=== PATIENT | male | born 1950 | race Caucasian/White ===

== ENCOUNTER → 2017-12-18 | Outpatient (REF) | payer MEDICARE, BC ==
[~2017-12-18] MED LIST: ACE3 PO; ACY200 PO; ASPI-715 PO; ATR10 PO; BEN20 PO; NAPR220C12 PO
== END ==
LOC: ZZSENDIN 10:44
PROVIDERS: ATTEND Family Medicine
DX: Z01.818 Encounter for other preprocedural examination (principal)
CPT/HCPCS: 81001

== ENCOUNTER 2017-12-22 01:15 | Inpatient (IN) | payer MEDICARE, BC ==
--- NOTE | 2017-12-02 11:27 | RADIOLOGY IMAGING REPORT ---
[place] [facility] [place] NAME[place] Obdulio Otoole : 1950 MR: [id number] V: [id number] EXAM DATE: ORDERING PHYSICIAN: WILBERT CRAWFORD TECHNOLOGIST: Location: [facility] - [place] Patient: Obdulio Otoole : 1950 Visit/Account:[id number] Date of Sevice: 12/02/2017 Exam type: CHEST PA AND LAT History: Preop, cough Comparison: 02/26/2010. Findings: Lungs are hyperinflated. There is no focal consolidation, pleural effusion or pneumothorax. Heart size is normal. The osseous structures demonstrate degenerative changes. Surgical screws overlie the right glenoid. IMPRESSION: 1. Pulmonary hyperinflation but no acute cardiopulmonary disease. Report Dictated By: Blake Laureano MD at 12/02/2017 11:21 AM Report E-Signed By: Blake Laureano MD at 12/02/2017 11:23 AM [id number]
[2017-12-22] VITALS (15 sets, daily range): BP systolic 123–148; BP diastolic 75–97
[~2017-12-22] VITALS: Ht 182.9 cm; Wt 112.5 kg
[2017-12-22] MEDS ORDERED: cloNIDine EPIDUR INJ 100MCG/ML 40 MCG, ROPIVACAINE 0.5% 20 ML VIAL 25 ML, EPINEPHrine H... INJ ONE (06:15)
--- NOTE | 2017-12-22 07:28 | LEVENE H&P ---
DATE OF ADMISSION: December 22, 2017 IDENTIFICATION/CHIEF COMPLAINT The patient is a 67-year-old gentleman with a chief complaint of right hip pain. HISTORY OF PRESENT ILLNESS The patient has a longstanding history of hip arthritis, which has become progressively painful and debilitating, refractory to conservative care. Surgery is indicated to relieve symptoms after failure of nonoperative measures. PAST MEDICAL HISTORY Notable for hypertension controlled on medication, sleep apnea. ALLERGIES He has no known drug allergies. CURRENT MEDICATIONS 1. Acyclovir 200 mg p.o. q.day. 2. Benazepril 40 mg p.o. q.day. 3. Atorvastatin 10 mg p.o. q.day. 4. Aspirin 81 mg p.o. q.day. 5. Naproxen as needed. PAST SURGICAL HISTORY Notable for shoulder reconstruction, UCL repair, and a hernia repair. FAMILY HISTORY Notable for a father with COPD and a mother with stroke. SOCIAL HISTORY Notable for smoking and occasionally chewing tobacco from 1957 ti 1995. He quit at that time. He drinks alcohol, 3-4 beverages per week, denies abuse. REVIEW OF SYSTEMS Negative. PHYSICAL EXAMINATION GENERAL: This is a well-developed, well-nourished male who appears stated age. HEENT: Normocephalic, atraumatic. NECK: Supple. LUNGS: Clear. HEART: Regular. ABDOMEN: Soft. ORTHOPEDIC EXAMINATION: The right hip is stiff at the limits of motion. Combined flexion and rotation produces pain. Hip girdle strength is normal. Skin envelope is intact. Neurovascular function is intact. RADIOGRAPHIC DATA Radiographs demonstrate end-stage hip arthritis. ASSESSMENT Right hip end-stage degenerative joint disease, progressively painful and debilitating, refractory to conservative care. PLAN Per patient request, we are going to proceed with total hip arthroplasty. Nature of this procedure, risks, benefits, the anticipated rehab course were reviewed. Risks include but are not limited to , major medical or anesthetic complication, infection, neurovascular injury, blood transfusion, stiffness, scarring, fracture, tendon rupture, instability, leg length discrepancy, implant loosening, migration or failure, persistent or recurrent pain, need for future surgery, and other unforeseen. He understands and wishes to proceed. Signed consent was placed in the chart, no guarantees given or implied. NADEEN
[2017-12-22] MEDS ORDERED: PROPOFOL EMUL(*) 10MG/ML 20 ML 20 ML ONE (08:04)
[2017-12-22] MEDS ORDERED: ONDANSETRON 4 MG/2 ML VIAL ONE (08:04)
[2017-12-22] MEDS ORDERED: DEXAMETHASONE SOD 4 MG/ML VIAL ONE (08:04)
[2017-12-22] MEDS ORDERED: LIDOCAINE MPF 1% 5 ML VIAL ONE (08:04)
[2017-12-22] MEDS ORDERED: fentaNYL CITR 100 MCG/2 ML AMP ONE (08:05)
[2017-12-22] MEDS ORDERED: ceFAZolin(*) 2GM/D5W 50ML 50 ML IVPB ONE (09:15)
[2017-12-22] MEDS ORDERED: FAMOTIDINE 20 MG TAB PO ONE (09:15)
[2017-12-22] MEDS ORDERED: LIDOCAINE/SOD BICARB 8.4% SYR ID ONE (09:15)
[2017-12-22] MEDS ORDERED: NORMOSOL R SOLN(*) 1000 ML BAG 1,000 ML IV PRN ×2 (09:15→12:40)
[2017-12-22] MEDS ORDERED: MIDAZOLAM 2 MG/2 ML VIAL IVP PRN (09:15)
[2017-12-22] MEDS ORDERED: TRANEXAMIC AC 1000 MG/10ML SDV 1,000 MG in DEXTROSE 5% 50 ML BAG 50 ML IV ONE (09:15)
[2017-12-22] MEDS ORDERED: KETAMINE HCL 200 MG/20 ML MDV ONE (10:30)
[2017-12-22] MEDS ORDERED: ACETAMINOPHEN 325 MG TAB PO PRN (12:40)
[2017-12-22] MEDS ORDERED: BENZOCAINE/MENTHOL 1 EACH LOZG PO PRN (12:40)
[2017-12-22] MEDS ORDERED: DIAZEPAM 5 MG TAB PO PRN (12:40)
[2017-12-22] MEDS ORDERED: diphenhydrAMINE 50 MG/ML VIAL IVP PRN (12:40)
[2017-12-22] MEDS ORDERED: MAGNESIUM HYDROXIDE* 30ML UDCP PO PRN (12:40)
[2017-12-22] MEDS ORDERED: BISACODYL 10 MG SUPP PR PRN (12:40)
[2017-12-22] MEDS ORDERED: ZOLPIDEM TARTRATE 5 MG TAB PO PRN (12:40)
[2017-12-22] MEDS ORDERED: diphenhydrAMINE 25 MG CAP PO PRN (12:40)
[2017-12-22] MEDS ORDERED: PROMETHAZINE 25 MG/ML 1 ML AMP IVP PRN (12:40)
[2017-12-22] MEDS ORDERED: FLUSH 10 ML SYR IVP PRN (12:40)
--- NOTE | 2017-12-22 14:10 | RADIOLOGY IMAGING REPORT ---
FACILITY: [facility] [place] PATIENT NAME: Obdulio Otoole : 1950 MR: [id number] V: [id number] EXAM DATE: ORDERING PHYSICIAN: WILBERT CRAWFORD TECHNOLOGIST: [place] [facility] [place] Patient: Obdulio Otoole : 1950 Visit/Account:[id number] Date of Sevice: 12/22/2017 PELVIS History: Postoperative right hip arthroplasty COMPARISON: none. FINDINGS: 1 views are provided. Right hip arthroplasty hardware appears well seated and in good alig nment. Expected postoperative changes overlie the soft tissues. Left hip joint appears within carly l limits. IMPRESSION: Right hip arthroplasty hardware in good alignment. No evidence of complications. Report Dictated By: Anderson Naranjo MD at 12/22/2017 2:05 PM Report E-Signed By: Anderson Naranjo MD at 12/22/2017 2:06 PM WSN:[id number]
--- NOTE | 2017-12-22 16:04 | Hospitalist Consultation ---
History of Present Illness Requesting Physician Bronson Ramey MD Reason for Consult s/p R-PAULINA and medical management Chief Complaint s/p R-PAULINA and hip pain History of Present Illness Mr. Otoole is a 67-year-old gentleman with a longstanding history of hip arthritis, which has become progressively painful and debilitating, refractory to conservative care. Surgery is indicated to relieve symptoms after failure of nonoperative measures. He underwent R-PAUILNA by today. Patient tolerated the anesthesia and surgical procedure. 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 I was asked to evaluate this patient for his medical problems during his hospital stay. He is afebrile, hemodynamically and medically stable. He denies any complaint. History Home Meds Reported Medications Naproxen Sodium (ALEVE) 220 Mg Capsule, 220 MG PO PRN, CAPSULE 12/16/17 Aspirin (Aspirin) 81 Mg Tablet.dr, 81 MG PO QDAY, 0 Refills 02/25/10 Benazepril Hcl 20 MG TAB (Benazepril Hcl 20 MG TAB) 20 Mg Tablet, 40 MG PO QDAY , 0 Refills 02/25/10 Acyclovir (Zovirax) 200 Mg Cap, 200 MG PO QDAY, 0 Refills 02/25/10 Atorvastatin (Lipitor) 10 Mg Tab, 10 MG PO QHS, 0 Refills 02/25/10 Allergies: Coded Allergies: No Known Drug Allergies (Verified , 12/16/17) Patient History: FH: COPD (chronic obstructive pulmonary disease) FATHER, FH: stroke MOTHER, Smoking Status: Never Smoker Caffeine Intake: Coffee Caffeine/Cups Per Day: 6 TO 7 CUPS PER DAY Hx Alcohol Use: Yes Alcohol Used: Beer Hx Substance Use Disorder: No Social Drug Use: Never History of IV Drug Use: No Review of Systems Constitutional: No Fever, No Chills Neurological: No Confusion, No Weakness, No Dizziness Eyes: No Vision Change ENT: No Sinus Congestion, No Sore Throat Cardiovascular: No Chest Pain, No Palpitations Respiratory: No Shortness of Breath, No Cough, No Wheezing Gastrointestinal: No Nausea, No Vomiting, No Diarrhea, No Constipation, No Abdominal Pain Genitourinary: No Dysuria, No Hematuria Musculoskeletal: Pain, Impaired Mobility, Other, No Sprain, No Strain Psychiatric: No Depression, No Anxiety Exam Vital Signs Vital Signs Date Time Temp Pulse Resp B/P (MAP) Pulse Ox O2 Delivery O2 Flow Rate FiO2 12/22/17 15:30 86 134/89 (104) 92 12/22/17 15:00 Nasal Cannula 1.0 12/22/17 14:23 97.0 12 General Appearance: Alert, Awake, No Acute Distress, Afebrile Neuro: No Gross deficits Eyes: PERRLA ENT: Normal Cardiovascular: Normal Rhythm & Peripheral Pulses Respiratory: No Respiratory Distress GI: Abd Soft and Non-Tender : Normal Extremities: Soft and Non Tender, Other (R-hip tenderness and decrease ROM) Integumentary: Skin Intact without Lesion / Mass Psych: Alert & Oriented X3, Appropriate Mood & Affect Medical Decision Making Pre-Admit Course Medical Record Review: Yes Assessment and Plan Problems: (1) HTN (hypertension) Status: Chronic Assessment & Plan: I will start low salt diet I will replace Benazepril to Lisinopril 40mg po qd I will hold his ASA 81mg qd I will continue his Acyclovir for Shingle's prophylaxis (2) S/P total hip arthroplasty Status: Acute Assessment & Plan: Management as per surgery and PT I will start Aspirin 325mg po qd for DVTP Pain management as per surgery (3) Dyslipidemia Status: Chronic Assessment & Plan: I will continue his Lipitor 10mg po qd Low fat diet Central Venous Access Medical Necessity for Access: IV Access Time Spent on Plan of Care: < 30 min Copies to: JULI STRONG MD; BRONSON RAMEY MD Venous Thromboembolism VTE Risk Physician Assess for VTE Risk: Yes Patient's VTE Risk: Low VTE Diagnostic Test 2 Days Prior to Admit: No Antithrombotics Is Pt On Any Antithrombotics?: No Exam Sepsis Risk: No Definite Risk Problem Qualifiers (1) S/P total hip arthroplasty: Laterality: right Qualified Codes: Z96.641 - Presence of right artificial hip joint JANELL GRIGGS MD Dec 22, 2017 16:04
[2017-12-22] MEDS ORDERED: LISINOPRIL 20 MG TAB PO SCH (16:10)
[2017-12-22] MEDS: CELECOXIB 200 MG CAP PO SCH (16:18)
[2017-12-22] MEDS: APAP/HYDROCODONE 325/7.5 TAB PO PRN ×2 (17:30→22:25)
[2017-12-22] MEDS: ceFAZolin 1 GM VIAL IVPB SCH (18:02)
[2017-12-22] MEDS: ATORVASTATIN 10 MG TAB PO SCH (20:52)
--- NOTE | 2017-12-22 22:28 | OPERATIVE REPORT 1 ---
EVENT DATE: December 22, 2017 SURGEON: Bronson Ramey MD ANESTHESIOLOGIST: Scott Spaulding MD ANESTHESIA: General plus spinal. STATISTICAL DEVELOPER: Axel Truong PA-C PREOPERATIVE DIAGNOSIS Right hip degenerative joint disease. POSTOPERATIVE DIAGNOSIS Right hip degenerative joint disease. PROCEDURE PERFORMED Right total hip arthroplasty. ESTIMATED BLOOD LOSS 200 mL DRAINS None. SPECIMENS None. COMPLICATIONS None apparent. IMPLANTS USED Baydin system with a Trident PSL GOMES cluster acetabular shell 52, Trident X3 zero-degree poly liner to accommodate a 36 mm head, a Secur-Fit Max 132-degree stem size 11, a Biolox delta ceramic C-taper femoral head +2.5 mm, 36 diameter. INDICATIONS Obdulio is a 67-year-old gentleman with progressive pain and disability related to end-stage hip arthritis. Surgery is indicated to relieve symptoms after failure of nonoperative measures. DESCRIPTION OF PROCEDURE The patient was taken to the operating room and placed supine on the operating table. A spinal block was administered by the anesthesiologist. General anesthesia was induced. Antibiotics were administered IV. The patient was positioned in left lateral decubitus on a well-padded pegboard. All bony prominences and superficial nerves were well padded. The right hip girdle and lower extremity were prepped and draped free in the usual sterile fashion for hip arthroplasty. A standard posterolateral incision was made and carried down through the skin and subcutaneous tissue to the deep fascia. The fascia was incised over the tip of the trochanter and extended distally in line with the femur and proximally in line with the latoya fibers. The latoya fibers were split bluntly. The trochanteric bursa was excised. A Charnley retractor was introduced. An L capsulotomy/tenotomy was made with the horizontal limb made just above the piriformis extending through the capsular layer and peeling the capsule and the external rotators off the posterior aspect of the femur. Tag stitches of #2 Vicryl were placed in the capsule and piriformis for later reattachment. The femoral head was dislocated. End-stage arthritis was noted. A 1.5 cm neck cut was made consistent with preoperative templating. The femoral head was extracted. The femur was translocated anteriorly. Acetabular retractor was placed with the tips down on bone. The labrum and pulvinar were excised. The 44 mm reamer was used to medialize the true medial wall of the acetabulum. It was expanded in 1 and 2 mm increments up to 52 where nice rim contact was obtained. Trial 52 had nice [id number] fit. The 53 was used to open the floor to the acetabulum to accommodate the raised rim liner. Then, the actual shell was impacted in approximately 40 degrees of lateral opening and 15 degrees of anteversion using the extracorporeal guide. The transverse acetabular ligament and the internal bony landmarks guided socket placement. Additional inferior osteophytes were resected. The liner was impacted into the cleaned and dried shell. Attention was turned to femoral preparation. The superior neck was resected with the cookwebme cutter. [facility] the [facility]. Tapered reaming was performed up to size 11 with good end ostial contact was obtained. Broaching started at 9 and worked up to 11, taking care to lateralize and to the follow the tribal version in the calcar at about 12 to 15 degrees. The 11 stem had nice fit and fill, and trial reduction was performed off this. Good holiness of limb length and stability were achievable. The broach was extracted. The surfaces were copiously lavaged. The pain cocktail was infiltrated throughout the wound. The actual stem was impacted, and after this was fully seated, various head and neck lengths were tried. The +2.5 seemed to be optimal for holiness of the limb length and stability. The Lucia taper was lavaged and dried, and the actual Biolox head was impacted onto the Lucia taper. The joint was reduced. The capsule and external rotators were reapproximated anatomically through drill holes on the posterior femur. The deep fascia was closed distally with #2 Ethibond and proximally with #2 Vicryl. The subcutaneous tissue was lavaged. Hemostasis was assured. The derm was closed with 3-0 Vicryl and the skin with surgical eli. Xeroform was applied with 4 x 4 dry, sterile dressing. The patient was rolled supine. A hip wrap was placed along with an abduction pillow. He was awakened from anesthesia and taken to the recovery room in stable condition having tolerated the procedure well. The plan is for standard PAULINA rehab protocol and weightbearing as tolerated. [facility]US[facility]
[2017-12-23] MEDS: ceFAZolin 1 GM VIAL IVPB SCH ×2 (02:41→10:25)
[2017-12-23] MEDS: APAP/HYDROCODONE 325/7.5 TAB PO PRN ×3 (02:44→20:06)
[2017-12-23 02:52] VITALS: BP 115/71
[2017-12-23 07:26] VITALS: BP 113/82
[2017-12-23] MEDS ORDERED: ASPI-764 PO (07:57)
[2017-12-23] MEDS ORDERED: HYDR-389 PO (07:58)
[2017-12-23] MEDS: CELECOXIB 200 MG CAP PO SCH ×2 (08:28→16:26)
[2017-12-23] MEDS: ASPIRIN 325 MG ENTERIC COATED PO SCH (08:28)
[2017-12-23] MEDS: ACYCLOVIR 200 MG CAP PO SCH (08:28)
[2017-12-23] MEDS ORDERED: LISINOPRIL 20 MG TAB PO SCH (09:00)
[2017-12-23] MEDS ORDERED: ASPIRIN 325 MG TAB PO SCH (09:00)
[2017-12-23 09:12] VITALS: Ht 182.9 cm; Wt 112.5 kg
[2017-12-23 11:20] VITALS: BP 110/70
--- NOTE | 2017-12-23 13:56 | Hospitalist Progress Note ---
Subjective Progress Notes Subjective He reports doing well. Physical Exam Vital Signs Date Time Temp Pulse Resp B/P (MAP) Pulse Ox O2 Delivery O2 Flow Rate FiO2 12/23/17 11:21 83 12/23/17 11:20 98.4 85 16 110/70 (83) Room Air 12/23/17 07:33 1.0 Intake and Output 12/24/17 07:01 Intake Total 240 ml Balance 240 ml Intake Oral 240 ml # Voids 2 General Appearance: Alert, Awake Cardiovascular: Regular Rate and Rhythm Respiratory: Clear to Auscultation Assessment and Plan Problems: (1) HTN (hypertension) Status: Chronic Assessment & Plan: Monitor BPs and resume Benazepril 40mg po qday as needed. (2) S/P total hip arthroplasty Status: Acute Assessment & Plan: As per orthopedics. Aspirin 325mg po qd for DVT prophylaxis. (3) Dyslipidemia Status: Chronic Assessment & Plan: Continue Lipitor 10mg po qd. Low fat diet. Central Venous Access Medical Necessity for Access: IV Access Exam Sepsis Risk: No Definite Risk Problem Qualifiers (1) S/P total hip arthroplasty: Laterality: right Qualified Codes: Z96.641 - Presence of right artificial hip joint FANNY SKINNER MD Dec 23, 2017 13:56
[2017-12-23 15:03] VITALS: BP 108/67
[2017-12-23 19:14] VITALS: BP 113/72
[2017-12-23] MEDS: ATORVASTATIN 10 MG TAB PO SCH (20:10)
[2017-12-23 23:26] VITALS: BP 119/76
[2017-12-24 03:30] VITALS: BP 114/77
[2017-12-24] MEDS: APAP/HYDROCODONE 325/7.5 TAB PO PRN (04:18)
[2017-12-24 08:05] VITALS: BP 103/78
[2017-12-24] MEDS: ACYCLOVIR 200 MG CAP PO SCH (08:15)
[2017-12-24] MEDS: CELECOXIB 200 MG CAP PO SCH (08:15)
[2017-12-24] MEDS: ASPIRIN 325 MG ENTERIC COATED PO SCH (08:15)
[2017-12-24] MEDS ORDERED: BENAZEPRIL HCL 20 MG TAB PO SCH (09:00)
--- NOTE | 2017-12-24 10:13 | EKG ---
[place] [facility] [place]IENT NAME: SHIRLEY WRIGHT : [id number] MR: [id number] V: [id number] EXAM DATE: ORDERING PHYSICIAN: JANELL GRIGGS TECHNOLOGIST: DIONY Irving Reason : RAPID RESPONSE Blood Pressure : / mmHG Vent. Rate : 078 BPM Atrial Rate : 078 BPM P-R Int : 214 ms QRS Dur : 086 ms QT Int : 354 ms P-R-T Axes : 065 042 047 degrees QTc Int : 403 ms Sinus rhythm with 1st degree AV block Otherwise normal ECG No previous ECGs available Referred By: INDU Confirmed By:
[2017-12-24] MEDS ORDERED: NS(*) 0.9% 500 ML BAG 500 ML ONE (10:39)
[2017-12-24 11:07] VITALS: BP 112/71
--- NOTE | 2017-12-24 17:07 | Hospitalist Progress Note ---
Subjective Progress Notes Subjective Mr. Otoole is a 67-year-old gentleman with a longstanding history of hip arthritis, which has become progressively painful and debilitating, refractory to conservative care. Surgery is indicated to relieve symptoms after failure of nonoperative measures. He underwent R-PAULINA by today. Patient tolerated the anesthesia and surgical procedure. 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 I was asked to evaluate this patient for his medical problems during his hospital stay. He is afebrile, hemodynamically and medically stable. He denies any complaint. 12/24: Patient had an episode of orthostatic hypotension during his PT session. His BP meds were on hold. His orthostasis was positive and he received 500ml NS and did well. His orthostasis improved and he completed his PT session and did well. He was d/c'd by Dr. Crawford. Patient Complains of: Neurological: Confusion, Dizziness, No: Syncope, Weakness, Slurred Speech Cardiovascular: Orthostatic Hypotension, No: Chest Pain, Palpitations Respiratory: No: Cough, Shortness of Breath Gastrointestinal: Nausea, No Vomiting Genitourinary: No Dysuria, No Hematuria Musculoskeletal: Pain Physical Exam Vital Signs Date Time Temp Pulse Resp B/P (MAP) Pulse Ox O2 Delivery O2 Flow Rate FiO2 12/24/17 11:07 97.9 81 16 112/71 (85) 97 Nasal Cannula 1.0 Intake and Output 12/25/17 07:00 Intake Total 920 ml Balance 920 ml Intake Oral 420 ml IV Total 500 ml # Voids 1 General Appearance: Alert, Awake, No Acute Distress, Afebrile Neuro: No Gross deficits Eyes: PERRLA ENT: Normal Neck: No Masses Cardiovascular: Regular Rate and Rhythm Respiratory: No Respiratory Distress GI: Soft and Non-Tender Extremities: Soft and Non Tender (mild hip tenderness) Integumentary: Skin Intact without Lesion / Mass Psych: Alert & Oriented X3, Appropriate Mood & Affect Assessment and Plan Problems: (1) HTN (hypertension) Status: Chronic Assessment & Plan: Monitor BPs and resume Benazepril 40mg po qday as needed. 12/24: His BP meds were on hold and patient will resume gradually at home. (2) S/P total hip arthroplasty Status: Acute Assessment & Plan: As per orthopedics. Aspirin 325mg po qd for DVT prophylaxis. 12/24: Management as persurgery and f/u with Dr. Crawford (3) Dyslipidemia Status: Chronic Assessment & Plan: Continue Lipitor 10mg po qd. Low fat diet. 12/24: He will resume his home meds for dyslipidemia Central Venous Access Medical Necessity for Access: IV Access Time Spent on Plan of Care: < 30 min Copies to: WILBERT CRAWFORD MD Exam Sepsis Risk: No Definite Risk Problem Qualifiers (1) S/P total hip arthroplasty: Laterality: right Qualified Codes: Z96.641 - Presence of right artificial hip joint JANELL GRIGGS MD Dec 24, 2017 17:07
== END 2017-12-24 15:45 | disposition home or self-care (01) | DRG 470 ==
LOC: OR 01:15 → MED 14:20
PROVIDERS: ADMIT Orthopaedic Surgery; ATTEND Orthopaedic Surgery
PROC: 0SR904A Replacement of Right Hip Joint with Ceramic on Polyethylene Synthetic Substitute, Uncemented, Open Approach (ICD-10-PCS; principal; 2017-12-22 10:26)
DX: M16.11 Unilateral primary osteoarthritis, right hip (principal); I10 Essential (primary) hypertension; G47.33 Obstructive sleep apnea (adult) (pediatric); I95.1 Orthostatic hypotension; B02.9 Zoster without complications; Z87.891 Personal history of nicotine dependence; E78.5 Hyperlipidemia, unspecified
CPT/HCPCS: 36415; 36416; 71046; 72170; 81001; 82948; 85610; 86850; 86900; 86901; 93005; 97161; 97165; C1776; J0171; J0690; J0735; J1100; J1885; J2001; J2250; J2405; J2704; J2795; J3010; J3490; J7040; J7050; J7060